=== PATIENT | female | born 1955 | race Caucasian/White ===

== ENCOUNTER 2016-06-26 18:34 | Emergency (ER) | payer SELFPAY ==
[~2016-06-26] VITALS: Ht 152.4 cm; Wt 90.7 kg
[2016-06-26 18:42] VITALS: BP 119/70
[2016-06-26] MEDS ORDERED: ACETAMINOPHEN ES 500 MG TABLET ONE (18:58)
[2016-06-26] MEDS ORDERED: ACETAMINOPHEN ES 500 MG TABLET PO ONE (19:00)
== END 2016-06-26 19:04 | disposition home or self-care (01) ==
LOC: ER 18:38
DX: H60.91 Unspecified otitis externa, right ear (principal)
CPT/HCPCS: A4606; Z7610